=== PATIENT | female | born 1980 | race African-American/Black ===

== ENCOUNTER 2017-08-03 13:52 | Emergency (ER) | payer BC ==
[2017-08-03 14:33] LABS: Urine Blood 2+ (NEG); Urine Glucose NEGATIVE (NEG); Urine Protein NEGATIVE (NEG); Urine Specific Gravity 1.025 (1.005-1.030); Urine pH 5.5 (5.0-7.0)
[2017-08-03 14:47] LABS: Absolute Lymphocytes (CBC) 2.9 K/uL (0.7-4.9); Absolute Monocytes 0.7 K/uL (0.1-1.3); Bicarbonate 25 mEq/L (21-31); Eosinophils % 2.2 % (0-4.4); Glucose Level 95 mg/dL (65-120); Hematocrit 26.3 % (36.0-45.0); Lymphocytes % 26.4 % (15.3-44.8); MCH 18.3 pg (27.0-35.0); MCV 59.2 fL (80-100); Monocytes % 6.5 % (3.3-12.3); Potassium 3.1 mEq/L (3.6-5.0); RBC Red Blood Cell Count 4.44 M/uL (3.86-4.86); Sodium Level 140 mEq/L (135-145)
[2017-08-03 14:53] LABS: ALT/SGPT 13 IU/L (10-60); AST/SGOT 18 IU/L (10-42); Albumin 4.2 g/dL (3.2-5.5); Alkaline Phosphatase 77 IU/L (42-121); BUN Blood Urea Nitrogen 11 mg/dL (6-20); Bilirubin Direct 0.1 mg/dL (0-0.2); Bilirubin Total 0.5 mg/dL (0.3-1.2); Magnesium 1.8 mg/dL (1.8-2.5)
--- NOTE | 2017-08-03 14:54 | RAD REPORT ---
EXAM DESCRIPTION: Mina Single View08/03/2017 2:44 pm CLINICAL HISTORY: Chest pain COMPARISON: 2007 FINDINGS: The lungs appear clear of acute infiltrate. The heart is normal size IMPRESSION: No acute abnormalities displayed
[2017-08-03 14:56] LABS: CKMB Creatine Kinase MB 1.1 ng/ml (0.3-4.0)
--- NOTE | 2017-08-03 15:07 | ER ---
Nurse's Notes [facility] Name: Nickie Concepcion Age: 36 yrs Sex: Female : 1980 Arrival Date: 08/03/2017 Time: 13:54 Bed 17 Private MD: Diagnosis: Chest pain, unspecified;Iron deficiency anemia Presentation: 08/03 13:56 Presenting complaint: Patient states: For the past few days I have been having la1 intermittent chest pain about every 45 minutes. Transition of care: patient was not received from another setting of care. Onset of symptoms was August 03, 2017. Care prior to arrival: None. 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 - Social history:: Smoking status: Patient/guardian denies using tobacco. Screenin:16 Abuse screen: Denies threats or abuse. Nutritional screening: No deficits noted. em Tuberculosis screening: No symptoms or risk factors identified. Fall Risk None identified. Assessment: 14:16 General: Appears in no apparent distress. comfortable, Behavior is calm, cooperative, em Reports reports intermittent substernal chest pain that started on Friday, denies N/V, diaphoresis, or lightheadedness, currently denies pain. Pain: Complains of pain in mid-sternal area Pain does not radiate. Pain began 2-3 days ago. Neuro: Level of Consciousness is awake, alert, obeys commands, Oriented to person, place, time, situation, Denies dizziness. Cardiovascular: Reports shortness of breath, Denies chest pain, diaphoresis, lightheadedness, palpitations, Heart tones S1 S2 present Capillary refill < 3 seconds Patient's skin is warm and dry. Edema is absent. Rhythm is sinus rhythm. Respiratory: Airway is patent Respiratory effort is even, unlabored, Respiratory pattern is regular, symmetrical, Breath sounds are clear bilaterally. GI: Abdomen is round non-distended, Patient currently denies nausea, vomiting. : Urine is clear. EENT: No signs and/or symptoms were reported regarding the EENT system. Derm: Skin is intact, Skin is pink, warm \T\ dry. Musculoskeletal: Capillary refill < 3 seconds, Range of motion:. 15:14 Reassessment: Patient appears in no apparent distress at this time. Patient and/or iw family updated on plan of care and expected duration. Pain level reassessed. Patient is alert, oriented x 3, equal unlabored respirations, skin warm/dry/pink. I agree with above assessment by Jaguar Jordan LVN Patient states feeling better. Patient states symptoms have improved. Vital Signs: 13:56 BP 112 / 90; Pulse 86; Resp 19; Temp 98.4(TE); Pulse Ox 100% on R/A; Weight 81.65 kg; la1 Height 5 ft. 7 in. (170.18 cm); 14:39 BP 111 / 67; Pulse 83; Resp 18; Pulse Ox 100% on R/A; Pain 0/10; em 15:24 BP 109 / 65; Pulse 89; Resp 16; Pulse Ox 100% on R/A; Pain 0/10; iw 13:56 Body Mass Index 28.19 (81.65 kg, 170.18 cm) la1 ED Course: 13:54 Patient arrived in ED. as 13:56 Triage completed. la1 13:57 Arm band placed on left wrist. la1 13:58 Jaguar Jordan LVN is Primary Nurse. em 13:59 Kizzy Santiago FNP-C [facility]. kb 13:59 Gera Kirkpatrick MD is Attending Physician. kb 14:16 Patient has correct armband on for positive identification. Bed in low position. Call em light in reach. Side rails up X2. lunchroom monitor on. Pulse ox on. NIBP on. 14:16 No provider procedures requiring assistance completed. Patient maintains SpO2 em saturation greater than 95% on room air. 14:20 Initial lab(s) drawn, by me, sent to lab. Urine collected: clean catch specimen, clear. em Inserted saline lock: 20 gauge in right antecubital area, using aseptic technique. Blood collected. 14:31 EKG done, by ED staff, reviewed by Gera Kirkpatrick MD. em1 14:41 X-ray completed. Portable x-ray completed in exam room. Patient tolerated procedure la2 well. 14:44 XRAY Chest (1 view) In Process Unspecified. EDMS 15:23 IV discontinued, intact, bleeding controlled, No redness/swelling at site. Pressure em1 dressing applied. 15:25 IV discontinued, intact, bleeding controlled, No redness/swelling at site. Pressure iw dressing applied. Administered Medications: 15:12 Drug: Potassium Chloride 40 mEq Route: PO; iw 15:27 Follow up: Response: No adverse reaction em Outcome: 15:07 Discharge ordered by . delphine 15:24 Discharged to home ambulatory, with friend. iw 15:24 Condition: good 15:24 Discharge instructions given to patient, Instructed on discharge instructions, follow up and referral plans. Demonstrated understanding of instructions, follow-up care. 15:28 Patient left the ED. iw Signatures: Dispatcher [employer] EDKizzy Ruth, BOARD DESIGN ENGINEER-C BOARD DESIGN ENGINEER-CkJaguar Mustafa, JAVA CONSULTANT JAVA CONSULTANT Reina Blake Irene, RN Miguel Tomlinson1 Emiliano Ma RN RN la1 Becky Amato la2
--- NOTE | 2017-08-03 15:07 | EDPHYS ---
Physician Documentation [facility] Name: Nickie Concepcion Age: 36 yrs Sex: Female : 1980 Arrival Date: 08/03/2017 Time: 13:54 Bed 17 Private MD: ED Physician Gera Kirkpatrick HPI: 08/03 14:08 This 36 yrs old Black Female presents to ER via Ambulatory with complaints of Chest kb Pain. 14:09 The patient or guardian reports chest pain that is located primarily in the substernal kb area. The pain does not radiate. Associated signs and symptoms: The patient has no apparent associated signs or symptoms. The chest pain is described as aching. Duration: The patient or guardian reports multiple episodes, that are intermittent, with no pattern. Modifying factors: The symptoms are alleviated by nothing. the symptoms are aggravated by nothing. Severity of pain: At its worst the pain was mild moderate in the emergency department the pain has improved. The patient has not experienced similar symptoms in the past. The patient has not recently seen a physician. 14:09 Pt reports intermittent chest pain for 2 days. Denies any associated symptoms. . 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 - Social history:: Smoking status: Patient/guardian denies using tobacco. ROS: 14:06 Constitutional: Negative for fever, chills, and weight loss, ENT: Negative for injury, kb pain, and discharge, Neck: Negative for injury, pain, and swelling, Respiratory: Negative for shortness of breath, cough, wheezing, and pleuritic chest pain, Abdomen/GI: Negative for abdominal pain, nausea, vomiting, diarrhea, and constipation, Back: Negative for injury and pain, : Negative for injury, bleeding, discharge, and swelling, MS/Extremity: Negative for injury and deformity, Skin: Negative for injury, rash, and discoloration, Neuro: Negative for headache, weakness, numbness, tingling, and seizure. 14:06 Cardiovascular: Positive for chest pain, of the mid-sternal area, Negative for edema, orthopnea, palpitations, paroxysmal nocturnal dyspnea. Exam: 14:06 Constitutional: This is a well developed, well nourished patient who is awake, alert, kb and in no acute distress. Head/Face: Normocephalic, atraumatic. ENT: Nares patent. No nasal discharge, no septal abnormalities noted. Tympanic membranes are normal and external auditory canals are clear. Oropharynx with no redness, swelling, or masses, exudates, or evidence of obstruction, uvula midline. Mucous membranes moist. Neck: Trachea midline, no thyromegaly or masses palpated, and no cervical lymphadenopathy. Supple, full range of motion without nuchal rigidity, or vertebral point tenderness. No Meningismus. Chest/axilla: Normal chest wall appearance and motion. Nontender with no deformity. No lesions are appreciated. Cardiovascular: Regular rate and rhythm with a normal S1 and S2. No gallops, murmurs, or rubs. Normal PMI, no JVD. No pulse deficits. Respiratory: Lungs have equal breath sounds bilaterally, clear to auscultation and percussion. No rales, rhonchi or wheezes noted. No increased work of breathing, no retractions or nasal flaring. Abdomen/GI: Soft, non-tender, with normal bowel sounds. No distension or tympany. No guarding or rebound. No evidence of tenderness throughout. Skin: Warm, dry with normal turgor. Normal color with no rashes, no lesions, and no evidence of cellulitis. MS/ Extremity: Pulses equal, no cyanosis. Neurovascular intact. Full, normal range of motion. Neuro: Awake and alert, GCS 15, oriented to person, place, time, and situation. Cranial nerves II-XII grossly intact. Motor strength 5/5 in all extremities. Sensory grossly intact. Cerebellar exam normal. Normal gait. Vital Signs: 13:56 BP 112 / 90; Pulse 86; Resp 19; Temp 98.4(TE); Pulse Ox 100% on R/A; Weight 81.65 kg; la1 Height 5 ft. 7 in. (170.18 cm); 14:39 BP 111 / 67; Pulse 83; Resp 18; Pulse Ox 100% on R/A; Pain 0/10; em 15:24 BP 109 / 65; Pulse 89; Resp 16; Pulse Ox 100% on R/A; Pain 0/10; iw 13:56 Body Mass Index 28.19 (81.65 kg, 170.18 cm) la1 MDM: 13:59 Patient medically screened. kb 14:06 Data reviewed: vital signs, nurses notes. Data interpreted: Pulse oximetry: on room air kb is 100 %. Interpretation: normal. 15:02 NHAN Risk Score: TOTAL SCORE = 0. ED course: HEART score 0. kb 15:06 Counseling: I had a detailed discussion with the patient and/or guardian regarding: the kb historical points, exam findings, and any diagnostic results supporting the discharge/admit diagnosis, lab results, radiology results, the need for outpatient follow up, a family practitioner, to return to the emergency department if symptoms worsen or persist or if there are any questions or concerns that arise at home. 08/03 14:06 Order name: LFT's; Complete Time: 15:02 kb 08/03 14:06 Order name: Basic Metabolic Panel; Complete Time: 15:02 kb 08/03 14:06 Order name: BNP; Complete Time: 15:02 kb 08/03 14:06 Order name: CBC with Diff; Complete Time: 15:27 kb 08/03 14:06 Order name: Ckmb; Complete Time: 15:02 kb 08/03 14:06 Order name: Magnesium; Complete Time: 15:02 kb 08/03 14:06 Order name: Urine Test (obtain specimen); Complete Time: 14:20 kb 08/03 14:06 Order name: Troponin (emerg Dept Use Only); Complete Time: 14:55 kb 08/03 14:06 Order name: XRAY Chest (1 view); Complete Time: 14:55 kb 08/03 14:06 Order name: EKG; Complete Time: 14:06 kb 08/03 14:30 Order name: Urine Dipstick--Ancillary (enter results); Complete Time: 14:35 ms 08/03 14:30 Order name: Urine --Ancillary (enter results); Complete Time: 14:35 ms 08/03 14:53 Order name: CBC Smear Scan; Complete Time: 15:27 EDMS 08/03 14:06 Order name: Cardiac monitoring; Complete Time: 14:20 kb 08/03 14:06 Order name: EKG - Nurse/Tech; Complete Time: 14:20 kb 08/03 14:06 Order name: IV Saline Lock; Complete Time: 14:21 kb 08/03 14:06 Order name: Labs collected and sent; Complete Time: 14:21 kb 08/03 14:06 Order name: O2 Per Protocol; Complete Time: 14:21 kb 08/03 14:06 Order name: O2 Sat Monitoring; Complete Time: 14:21 kb 08/03 14:06 Order name: Urine Dipstick-Ancillary (obtain specimen); Complete Time: 14:20 kb Administered Medications: 15:12 Drug: Potassium Chloride 40 mEq Route: PO; 15:27 Follow up: Response: No adverse reaction em Disposition: 16:08 Co-signature as Attending Physician, Gera Kirkpatrick MD I agree with the assessment and kdr plan of care. Disposition: 08/03/17 15:07 Discharged to Home. Impression: Chest pain, unspecified, Iron deficiency anemia. - Condition is Stable. - Discharge Instructions: Nonspecific Chest Pain, [id number], Iron Deficiency Anemia, Adult, [id number]. - Medication Reconciliation Form, Thank You Letter, Antibiotic Education, Prescription Opioid Use, Work release form form. - Follow up: Emergency Department; When: As needed; Reason: Worsening of condition. Follow up: Private Physician; When: 2 - 3 days; Reason: Recheck today's complaints, Continuance of care, Re-evaluation by your physician. Signatures: Dispatcher [employer] Kizzy Ramos, PROGRAMMING COORDINATOR-C PROGRAMMING COORDINATOR-Gera Jones MD MD kdr Cammie Vickers, RN Emiliano Montoya RN RN laJaguar Baez LVN em
[2017-08-03 15:25] LABS: Anisocytosis 1+; Blood Morphology Comment NOTED (NOT SEEN); Hypochromasia 2+; Platelet Estimate ADEQ; Urine White Blood Cell Casts OK
[2017-08-03 15:26] LABS: Ovalocytes SLIGHT
[2017-08-03] MEDS ORDERED: POTASSIUM CL SA 10 MEQ TAB PO ONE (15:28)
--- NOTE | 2017-08-04 07:10 | EKG ---
Test Date: 2017-08-03 Test Time: 14:02:48 Desktop Engineer: PAULA MEASUREMENT RESULTS: Intervals: Rate: 77 WA: 132 QRSD: 90 QT: 368 QTc: 416 [place]: P: 28 WA: 132 QRS: 59 T: 41 INTERPRETIVE STATEMENTS: Normal sinus rhythm Normal ECG No previous ECG available for comparison Electronically Signed On 08-04-17 07:09:33 CDT by Shane Smart
== END 2017-08-03 15:28 | disposition home or self-care (01) ==
LOC: ER 13:52
DX: R07.9 Chest pain, unspecified (principal); D50.9 Iron deficiency anemia, unspecified
CPT/HCPCS: 36415; 71045; 80048; 80076; 81003; 81025; 82553; 83735; 83880; 84484; 85025; 93005; 99285

== ENCOUNTER 2018-10-15 20:08 | Emergency (ER) | payer BC ==
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
== END 2018-10-15 20:59 | disposition left against medical advice (07) ==
LOC: ER 20:08
DX: Z04.1 Encounter for examination and observation following transport accident (principal); Z53.21 Procedure and treatment not carried out due to patient leaving prior to being seen by health care provider
CPT/HCPCS: 99281

== ENCOUNTER 2021-09-09 08:09 | Emergency (ER) | payer OTHER ==
[2021-09-09] MEDS ORDERED: KETOROLAC 30 MG/ML INJ ONE (08:56)
--- NOTE | 2021-09-09 09:07 | RAD REPORT ---
EXAM DESCRIPTION: RAD - Lumbar Spine 3 Views - 09/09/2021 9:00 am CLINICAL HISTORY: Back pain FINDINGS: Mild posterior subluxation L5 on S1. No fracture or dislocation
[2021-09-09 09:08] LABS: Urine Blood Negative (Negative); Urine Glucose Negative (Negative); Urine Protein Trace (Negative); Urine Specific Gravity 1.025 (1.005-1.030)
[2021-09-09 09:18] LABS: Urine Specific Gravity/Preg 1.025 (1.005-1.030)
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
[2021-09-09 09:36] VITALS: BP 117/71; TEMP 97.3; O2SAT 98
== END 2021-09-09 09:31 | disposition home or self-care (01) ==
LOC: ER 08:09
DX: S33.39XA Dislocation of other parts of lumbar spine and pelvis, initial encounter (principal); V49.49XA Driver injured in collision with other motor vehicles in traffic accident, initial encounter
CPT/HCPCS: 72100; 81003; 81025; 96372; 99283

== ENCOUNTER 2022-01-31 12:49 | Emergency (ER) | payer BC, SELFPAY ==
[2022-01-31 13:47] LABS: Absolute Lymphocytes (CBC) 2.7 K/uL (0.7-4.9); Hematocrit 28.2 % (36.0-45.0); Lymphocytes % 30.6 % (15.3-44.8); MCV 66.2 fL (80-100); MPV 8.3 fL (7.6-11.3); RBC Red Blood Cell Count 4.26 M/uL (3.86-4.86)
[2022-01-31 14:02] LABS: Albumin 3.7 g/dL (3.4-5.0); Bilirubin Total 0.2 mg/dL (0.2-1.0); Potassium 3.2 mmol/L (3.5-5.1); Protein, Total 7.6 g/dL (6.4-8.2)
--- NOTE | 2022-01-31 15:01 | RAD REPORT ---
EXAM DESCRIPTION: US - Transvaginal Study Probe - 01/31/2022 2:27 pm CLINICAL HISTORY: VAGINAL BLEEDING COMPARISON: TRANSVAGINAL STUDY PROBE dated 05/21/2013 TECHNIQUE: Endovaginal sonography was performed. FINDINGS: Both ovaries are identified and show normal blood flow within the ovarian stroma. No domin ant solid or cystic ovarian or adnexal finding. No blood or fluid in the cul de sac. Prominent size uterus is present measuring 11.5 x 6.0 x 6.5 cm. Myometrium is somewhat coarsened but a discrete myometrial mass is not identified. Endometrium is thickened at 16-20 mm along the course o f the endometrial cavity. Endometrium - myometrium interface is preserved. Endometrial tissue is hete rogeneous. There is likely a mix of endometrial tissue and hemorrhage. Heterogeneous echogenic debris is present in the cervical canal. IMPRESSION: Hemorrhagic material and thickened endometrial tissue are present thickening the endomet rial stripe. No discrete endometrial mass or polyp identifiable. No gestational sac or sac remnant. No ovarian or adnexal abnormality.
--- NOTE | 2022-01-31 15:33 | ER ---
Nurse's Notes [facility] Name: Nickie Concepcion Age: 41 yrs Sex: Female : 1980 Arrival Date: 01/31/2022 Time: 12:54 Bed 5 Private MD: Diagnosis: Abnormal uterine and vaginal bleeding, unspecified Presentation: 01/31 13:04 Chief complaint: Patient states: hx of very irregular periods; started spotting jh Friday, Friday started bleeding significantly more with cramping. Pt was told to come here from her doctor because two days ago her hgb was 7 and theyre worried it's lower. Coronavirus screen: Vaccine status: Patient reports receiving the 2nd dose of the covid vaccine. Client denies travel out of the [place] in the last 14 days. Ebola Screen: Patient negative for fever greater than or equal to 101.5 degrees Fahrenheit, and additional compatible Ebola Virus Disease symptoms Patient denies exposure to infectious person. Patient denies travel to an Ebola-affected area in the 21 days before illness onset. Initial Sepsis Screen: Does the patient meet any 2 criteria? No. Patient's initial sepsis screen is negative. Does the patient have a suspected source of infection? No. Patient's initial sepsis screen is negative. Risk Assessment: Do you want to hurt yourself or someone else? Patient reports no desire to harm self or others. Onset of symptoms was January 29, 2022. 13:04 Method Of Arrival: Ambulatory [facility] 13:04 Acuity: VINICIUS 3 5 Triage Assessment: 13:06 General: Appears in no apparent distress. obese, well groomed, well developed, Behavior [facility] is calm, cooperative, appropriate for age. Pain: Denies pain. : Reports vaginal bleeding that is bright red. 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 Historical: - Allergies: 13:06 No Known Allergies; 5 - Home Meds: 13:06 Iron CR Oral [Active]; 5 - PMHx: 13:06 Anemia; 5 - Immunization history:: Adult Immunizations up to date. - Social history:: Smoking status: Patient denies any tobacco usage or history of. Screenin:30 Abuse screen: Denies threats or abuse. Denies injuries from another. Nutritional jh6 screening: No deficits noted. Tuberculosis screening: No symptoms or risk factors identified. Fall Risk None identified. Assessment: 13:30 Reassessment: No changes from previously documented assessment. Patient and/or family ll1 updated on plan of care and expected duration. Pain level reassessed. Patient is alert, oriented x 3, equal unlabored respirations, skin warm/dry/pink. Vital Signs: 13:04 BP 124 / 88; Pulse 86; Resp 18; Temp 98.6; Pulse Ox 97% ; Weight 86.64 kg; Height 5 ft. 5 7 in. (170.18 cm); Pain 0/10; 14:43 BP 126 / 74; Pulse 80; Resp 17; Pulse Ox 98% ; jh6 13:04 Body Mass Index 29.91 (86.64 kg, 170.18 cm) 5 ED Course: 12:54 Patient arrived in ED. 4 13:05 Thiago Burr PA is PHCP. [facility] 13:05 Vik Chan MD is Attending Physician. [facility] 13:06 Triage completed. [facility] 13:06 Arm band placed on right wrist. [facility] 13:25 Inserted saline lock: 22 gauge in right antecubital area, using aseptic technique. ll1 Blood collected. 13:30 Type And Screen Sent. ll1 13:30 CMP Sent. 1 13:30 CBC with Diff Sent. 1 13:38 Ekta Sorto, JULIETA is Primary Nurse. 6 14:10 Transvaginal Study Probe In Process Unspecified. EDMS 14:44 Patient has correct armband on for positive identification. Bed in low position. Call [facility] light in reach. Side rails up X 1. 14:44 No provider procedures requiring assistance completed. 6 15:30 Melany Hess MD is Referral Physician. [facility] Administered Medications: No medications were administered Medication: 14:44 VIS not applicable for this client. [facility] Outcome: 15:32 Discharge ordered by . [facility] 16:13 Patient left the ED. [facility] Signatures: Dispatcher [employer] EDMS Thiago Burr PA PA jmm Garcia, Rubi 4 Mely Chauhan RN RN ll1 Zoie Zamudio RN RN 5 Ekta Sorto RN RN 6
--- NOTE | 2022-01-31 15:33 | EDPHYS ---
Physician Documentation [facility] Name: Nickie Concepcion Age: 41 yrs Sex: Female : 1980 Arrival Date: 01/31/2022 Time: 12:54 Bed 5 Private MD: ED Physician Vik Chan HPI: 01/31 13:08 This 41 yrs old Black Female presents to ER via Ambulatory with complaints of Vaginal jmm Bleeding. 13:08 The patient presents with vaginal bleeding that is. Onset: The symptoms/episode jmm began/occurred gradually, 1 week(s) ago. Modifying factors: The symptoms are alleviated by nothing, the symptoms are aggravated by nothing. Associated signs and symptoms: Pertinent negatives: fever, vaginal discharge. 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 - Social history:: Smoking status: Patient denies any tobacco usage or history of. ROS: 18:07 Constitutional: Negative for fever, chills, and weight loss, Cardiovascular: Negative jmm for chest pain, palpitations, and edema, Respiratory: Negative for shortness of breath, cough, wheezing, and pleuritic chest pain. 18:07 : Positive for vaginal bleeding. 18:07 All other systems are negative. Exam: 18:07 Constitutional: This is a well developed, well nourished patient who is awake, alert, jmm and in no acute distress. Head/Face: atraumatic. Eyes: EOMI, no conjunctival erythema appreciated ENT: Moist Mucus Membranes Neck: Trachea midline, Supple Chest/axilla: Normal chest wall appearance and motion. Cardiovascular: Regular rate and rhythm. No edema appreciated Respiratory: Normal respirations, no respiratory distress appreciated Abdomen/GI: Non distended Back: Normal ROM Skin: General appearance color normal MS/ Extremity: Moves all extremities, no obvious deformities appreciated, no edema noted to the lower extremities Neuro: Awake and alert Psych: Behavior is normal, Mood is normal, Patient is cooperative and pleasant Vital Signs: 13:04 BP 124 / 88; Pulse 86; Resp 18; Temp 98.6; Pulse Ox 97% ; Weight 86.64 kg; Height 5 ft. 5 7 in. (170.18 cm); Pain 0/10; 14:43 BP 126 / 74; Pulse 80; Resp 17; Pulse Ox 98% ; jh6 13:04 Body Mass Index 29.91 (86.64 kg, 170.18 cm) [facility] MDM: 13:08 Patient medically screened. [facility] 15:30 Data reviewed: vital signs, nurses notes. Counseling: I had a detailed discussion with [facility] the patient and/or guardian regarding: the historical points, exam findings, and any diagnostic results supporting the discharge/admit diagnosis, lab results, radiology results, the need for outpatient follow up, to return to the emergency department if symptoms worsen or persist or if there are any questions or concerns that arise at home. 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 I agree with assessment [facility] and care plan and confirm the diagnosis (es) above. Attestation: The patient's history, exam findings, diagnostics, and a summary of any interventions or procedures was reviewed in detail with Thiago MELENDREZ. Disposition Summary: 01/31/22 15:32 Discharge Ordered Location: Home [facility] Condition: Stable [facility] Diagnosis - Abnormal uterine and vaginal bleeding, unspecified [facility] Followup: [facility] - With: Melany Hess MD - When: 2 - 3 days - Reason: Recheck today's complaints, Continuance of care, Re-evaluation by your physician Discharge Instructions: - Discharge Summary Sheet [facility] - Abnormal Uterine Bleeding [facility] Forms: - Medication Reconciliation Form [facility] - Thank You Letter [facility] - Antibiotic Education [facility] - Prescription Opioid Use [facility] - Work release form [facility] Prescriptions: - norgestimate-ethinyl estradiol 0.25-35 mg-mcg Oral tablet - take 1 tablet by ORAL route once daily As needed Please take 1 tab po BID for 7 jmm days, then take 1 tab by mouth daily until finishing the pack; 28 tablet; Refills: 0, Product Selection Permitted - Ferrous Sulfate 325 mg (65 mg Iron) Oral Tablet - take 1 tablet by ORAL route every 8 hours; 90 tablet; Refills: 0, Product jmm Selection Permitted Signatures: Dispatcher [employer] EDThiago Quiroz PA PA jmm Rees, Jessica, RN RN jh5 Vik Chan MD MD [id number] Corrections: (The following items were deleted from the chart) 13:53 13:12 Pelvis Complete+[id number].BRZ ordered. EDMS EDMS
[2022-01-31 15:44] LABS: Anisocytosis 1+; Blood Morphology Comment NOTED (NOT SEEN); Hypochromasia 1+; Platelet Estimate ADEQ; White Blood Cell Scan OK (OK)
[2022-02-01 20:06] VITALS: TEMP 98.6
[2022-02-01 20:07] VITALS: BP 126/74; O2SAT 98
== END 2022-01-31 16:13 | disposition home or self-care (01) ==
LOC: ER 12:49
DX: N93.9 Abnormal uterine and vaginal bleeding, unspecified (principal)
CPT/HCPCS: 36415; 76830; 80053; 85025; 99283

== ENCOUNTER 2023-03-24 10:20 | Emergency (ER) | payer SELFPAY ==
--- OUTSIDE RECORDS SUMMARY | 2023-03-24 10:23 | XMS REPORT | Continuity of Care Document ---
:1980 Author Organization [facility] t Address [address] [place] [id number] Care Team Providers Name Role Phone [email or web address] Attending Clinician Unavailable [email or web address] Admitting Clinician Unavailable Problems This patient has no known problems. Allergies, Adverse Reactions, Alerts This patient has no known allergies or adverse reactions. Medications This patient has no known medications. Procedures This patient has no known procedures. Encounters Start End Encounter Admission Attending Care Care Encounter Source Date/Time Date/Time Type Type Clinicians Facility Department ID 2023-03-05 2023-03-05 Outpatient [email or web address] PRIV PRIV [id number] [facility] 00:00:00 00:00:00 [email or web address] [id number] Medic al Results This patient has no known results.
[2023-03-24 11:30] LABS: Absolute Lymphocytes (CBC) 2.7 K/uL (0.7-4.9); Hematocrit 28.1 % (36.0-45.0); Lymphocytes % 37.9 % (15.3-44.8); MCV 62.7 fL (80-100); Platelets 424 thou/uL (152-406); RBC Red Blood Cell Count 4.48 M/uL (3.86-4.86)
[2023-03-24 11:31] LABS: Protime INR 1.13
[2023-03-24 11:44] LABS: Potassium 3.5 mEq/L (3.5-5.1); Troponin High Sensitivity 3.2 pg/mL (<58.9)
--- NOTE | 2023-03-24 12:06 | RAD REPORT ---
EXAM DESCRIPTION: Mina Single View03/24/2023 11:34 am CLINICAL HISTORY: Chest pain COMPARISON: none FINDINGS: The lungs appear clear of acute infiltrate. The heart is normal size IMPRESSION: No acute abnormalities displayed
[2023-03-24 12:35] LABS: Blood Morphology Comment NOTED (NOT SEEN); Platelet Estimate ADEQ; White Blood Cell Scan OK (OK)
[2023-03-24 12:36] LABS: Anisocytosis 2+; Hypochromasia 2+
--- NOTE | 2023-03-24 12:49 | RAD REPORT ---
EXAM DESCRIPTION: CT - Chest For Pe Angio - 03/24/2023 12:18 pm CLINICAL HISTORY: Chest pain COMPARISON: None. TECHNIQUE: Dynamically enhanced axial 3 mm thick images of the chest were obtained during administra tion of 100 mL Isovue 370 IV contrast. Coronal and oblique reconstruction images were generated and r eviewed. Exam utilizes a protocol for optimal evaluation of pulmonary arterial tree. Maximum intensity projections 3D imaging was utilized All CT scans are performed using dose optimization technique as appropriate and may include automated exposure control or mA/KV adjustment according to patient size. FINDINGS: A pulmonary embolus is not seen. A thoracic aortic aneurysm is not noted. A pleural effusion is not seen. A pericardial effusion is not seen. A lung consolidation is not present. IMPRESSION: Negative for a pulmonary embolism.
--- NOTE | 2023-03-24 12:55 | EDPHYS ---
Physician Documentation [facility] Name: Nickie Concepcion Age: 42 yrs Sex: Female : 1980 Arrival Date: 03/24/2023 Time: 10:20 Bed 14 Private MD: ED Physician Pedrito Carrington HPI: 03/24 10:26 This 42 yrs old Black Female presents to ER via Ambulatory with complaints of Chest jh7 Pain. 10:26 Onset: The symptoms/episode began/occurred this morning. Associated signs and symptoms: jh7 Pertinent positives: chest pain, shortness of breath, Pertinent negatives: abdominal pain, cough, fever. Patient sent by Dr. Bro for a chest x-ray. The patient reports that her O2 sat of 91% while at the clinic and has a history of anemia. She states that the chest pain and shortness of breath have been intermittent for a while. Denies fever, cough, or any other symptoms at this time.. 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 - Social history:: Smoking status: Patient denies any tobacco usage or history of. ROS: 10:26 Constitutional: Negative for fever, chills, and weight loss, Eyes: Negative for injury, jh7 pain, redness, and discharge, ENT: Negative for injury, pain, and discharge, Neck: Negative for injury, pain, and swelling, Abdomen/GI: Negative for abdominal pain, nausea, vomiting, diarrhea, and constipation, Back: Negative for injury and pain, MS/Extremity: Negative for injury and deformity, Skin: Negative for injury, rash, and discoloration, Neuro: Negative for headache, weakness, numbness, tingling, and seizure, 10:26 Cardiovascular: Positive for chest pain, Negative for edema, orthopnea, palpitations, 10:26 Respiratory: Positive for shortness of breath, Negative for cough, wheezing, 10:26 All other systems are negative, Exam: 10:26 Constitutional: This is a well developed, well nourished patient who is awake, alert, jh7 and in no acute distress. Head/Face: Normocephalic, atraumatic. Neck: Trachea midline, no thyromegaly or masses palpated, and no cervical lymphadenopathy. Supple, full range of motion without nuchal rigidity, or vertebral point tenderness. No Meningismus. Cardiovascular: Regular rate and rhythm with a normal S1 and S2. No gallops, murmurs, or rubs. Normal PMI, no JVD. No pulse deficits. Respiratory: Lungs have equal breath sounds bilaterally, clear to auscultation and percussion. No rales, rhonchi or wheezes noted. No increased work of breathing, no retractions or nasal flaring. Abdomen/GI: Soft, non-tender, with normal bowel sounds. No distension or tympany. No guarding or rebound. No evidence of tenderness throughout. Skin: Warm, dry with normal turgor. Normal color with no rashes, no lesions, and no evidence of cellulitis. MS/ Extremity: Pulses equal, no cyanosis. Neurovascular intact. Full, normal range of motion. Neuro: Awake and alert, GCS 15, oriented to person, place, time, and situation. Motor strength 5/5 in all extremities. Sensory grossly intact. Normal gait. Vital Signs: 10:26 BP 122 / 85; Pulse 76; Resp 18; Temp 98.1; Pulse Ox 100% ; Weight 83.91 kg; Height 5 mb9 ft. 7 in. ; Pain 0/10; 11:00 BP 106 / 65; Pulse 82; Resp 16; Pulse Ox 100% on R/A; db 12:30 BP 107 / 70; Pulse 81; Resp 16; Pulse Ox 97% on R/A; db 10:26 Body Mass Index 28.97 (83.91 kg, 170.18 cm) mb9 10:26 Pain Scale: Adult mb9 MDM: 10:26 Patient medically screened. [facility] 12:52 Differential diagnosis: pneumonia Pulmonary embolism, bronchitis, anemia, viral [facility] illness, cardiac arrhythmia, acute MT. Data reviewed: vital signs, nurses notes, lab test result(s), EKG, radiologic studies, CT scan, plain films. Independent interpretation of the following test(s) in the Emergency Department EKG: See my EKG interpretation above X-Ray: My interpretation is No pneumonia noted. Care significantly affected by the following chronic conditions: Anemia. Counseling: I had a detailed discussion with the patient and/or guardian regarding the historical points, exam findings, and any diagnostic results supporting the discharge/admit diagnosis, to return to the emergency department if symptoms worsen or persist or if there are any questions or concerns that arise at home. ED course: Reviewed all labs and imaging results with the patient. O2 sat remained at 100% throughout the ER visit. The patient stated that the chest pain and shortness of breath has been intermittent for the past few months. Advised her to follow-up with her PCP for further care. The patient stated that her PCP increased her iron dosage today which should hopefully help with symptoms.. 03/24 10:35 Order name: Basic Metabolic Panel; Complete Time: 11:48 [facility] 03/24 10:35 Order name: CBC with Diff; Complete Time: 12:37 [facility] 03/24 10:35 Order name: D-Dimer; Complete Time: 11:40 [facility] 03/24 10:35 Order name: NT PRO-BNP; Complete Time: 11:48 [facility] 03/24 10:35 Order name: PT-INR; Complete Time: 11:40 [facility] 03/24 10:35 Order name: Troponin HS; Complete Time: 11:48 [facility] 03/24 10:51 Order name: Type And Screen; Complete Time: 12:37 [facility] 03/24 11:50 Order name: CBC Smear Scan; Complete Time: 12:37 [facility] 03/24 10:35 Order name: XRAY Chest (1 view); Complete Time: 12:37 [facility] 03/24 11:41 Order name: CT Chest For PE Angio; Complete Time: 12:50 [facility] 03/24 10:35 Order name: EKG; Complete Time: 10:36 [facility] 03/24 10:35 Order name: Cardiac monitoring; Complete Time: 11:33 [facility] 03/24 10:35 Order name: EKG - Nurse/Tech; Complete Time: 11:33 [facility] 03/24 10:35 Order name: IV Saline Lock; Complete Time: :33 [facility] 03/24 10:35 Order name: Labs collected and sent; Complete Time: 11:33 [facility] 03/24 10:35 Order name: O2 Per Protocol; Complete Time: : [facility] 03/24 10:35 Order name: O2 Sat Monitoring; Complete Time: 11:33 jh7 EC:57 Rate is 74 beats/min. Rhythm is regular. QRS [place] is Normal. NV interval is normal at [facility] 138 msec. QRS interval is normal at 98 msec. QT interval is normal at 380 msec. No Q waves. T waves are Normal. No ST changes noted. Clinical impression: Normal ECG. Administered Medications: No medications were administered Disposition: 16:45 Co-signature as Attending Physician, Pedrito Carrington MD I reviewed the patient's care rt provided by the Advanced Practice Provider and agree with the diagnosis and treatment plan. Disposition Summary: 03/24/23 12:54 Discharge Ordered Notes: Location: Home [facility] Problem: chronic [facility] Symptoms: are unchanged [facility] Condition: Stable [facility] Diagnosis - Iron deficiency anemia, unspecified [facility] - Shortness of breath [facility] - Chest pain on breathing [facility] Followup: [facility] - With: Private Physician - When: 2 - 3 days - Reason: Recheck today's complaints Discharge Instructions: - Discharge Summary Sheet [facility] - Iron Deficiency Anemia, Adult [facility] - Nonspecific Chest Pain, Adult [facility] - Shortness of Breath, Adult [facility] Forms: - Medication Reconciliation Form [facility] - Thank You Letter [facility] - Patient Portal Instructions [facility] - Leadership Thank You Letter [facility] - Work release form db Signatures: Dispatcher [employer] Ekta Pham FNP FNP [facility] Annette Lyn, RN RN mb9 Pedrito Carrington MD MD rt
--- NOTE | 2023-03-24 12:55 | ER ---
Nurse's Notes [facility] Name: Nickie Concepcion Age: 42 yrs Sex: Female : 1980 Arrival Date: 03/24/2023 Time: 10:20 Bed 14 Private MD: Diagnosis: Iron deficiency anemia, unspecified;Shortness of breath;Chest pain on breathing Presentation: 03/24 10:26 Chief complaint: Patient states: "Dr. Bro sent me here to do a chest XRAY because my mb9 oxygen levels were low in the 90s. I feel a little out of breath and chest pain every now and then.". Coronavirus screen: At this time, the client does not indicate any symptoms associated with coronavirus-19. Ebola Screen: No symptoms or risks identified at this time. Initial Sepsis Screen: Does the patient meet any 2 criteria? No. Patient's initial sepsis screen is negative. Does the patient have a suspected source of infection? No. Patient's initial sepsis screen is negative. Risk Assessment: Do you want to hurt yourself or someone else? Patient reports no desire to harm self or others. Onset of symptoms was March 24, 2023. 10:26 Method Of Arrival: Ambulatory mb9 10:26 Acuity: VINICIUS 3 mb9 Triage Assessment: 10:28 General: Appears in no apparent distress. Behavior is calm, cooperative. Pain: Denies mb9 pain. EENT: No signs and/or symptoms were reported regarding the EENT system. Neuro: Barnes Agitation-Sedation Scale (RASS): 0 - Alert and Calm Level of Consciousness is awake, alert, obeys commands, Oriented to person, place, time, situation, Appropriate for age. Cardiovascular: Reports chest pain. Respiratory: Reports shortness of breath Airway is patent Respiratory effort is even, unlabored, Respiratory pattern is regular, symmetrical. GI: No signs and/or symptoms were reported involving the gastrointestinal system. : No signs and/or symptoms were reported regarding the genitourinary system. Derm: Skin is pink, warm \\T\\ dry. Musculoskeletal: Range of motion: intact in all extremities. 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 - Social history:: Smoking status: Patient denies any tobacco usage or history of. Screenin:14 [facility] ED Fall Risk Assessment (Adult) History of falling in the last 3 months, db including since admission No falls in past 3 months (0 pts) Confusion or Disorientation No (0 pts) Intoxicated or Sedated Yes (3 pts) Impaired Gait No (0 pts) Mobility Assist Device Used No (0 pt) Altered Elimination No (0 pt) Score/Fall Risk Level 0 - 2 = Low Risk Oriented to surroundings, Maintained a safe environment. Abuse screen: Denies threats or abuse. Denies injuries from another. Nutritional screening: No deficits noted. Tuberculosis screening: No symptoms or risk factors identified. Assessment: 11:00 Reassessment: Patient appears in no apparent distress at this time. Patient and/or db family updated on plan of care and expected duration. Pain level reassessed. Patient is alert, oriented x 3, equal unlabored respirations, skin warm/dry/pink. General: Appears in no apparent distress. comfortable, Behavior is calm, cooperative. Pain: Complains of pain in chest Pain does not radiate. Pain began gradually. Neuro: Level of Consciousness is awake, alert, obeys commands, Oriented to person, place, time, situation. 12:00 Reassessment: Patient appears in no apparent distress at this time. Patient and/or db family updated on plan of care and expected duration. Pain level reassessed. Patient is alert, oriented x 3, equal unlabored respirations, skin warm/dry/pink. 13:18 Reassessment: Patient appears in no apparent distress at this time. Patient and/or iw family updated on plan of care and expected duration. Pain level reassessed. Patient is alert, oriented x 3, equal unlabored respirations, skin warm/dry/pink. Patient denies pain at this time. Patient states symptoms have improved. Vital Signs: 10:26 BP 122 / 85; Pulse 76; Resp 18; Temp 98.1; Pulse Ox 100% ; Weight 83.91 kg; Height 5 mb9 ft. 7 in. ; Pain 0/10; 11:00 BP 106 / 65; Pulse 82; Resp 16; Pulse Ox 100% on R/A; db 12:30 BP 107 / 70; Pulse 81; Resp 16; Pulse Ox 97% on R/A; db 10:26 Body Mass Index 28.97 (83.91 kg, 170.18 cm) 9 10:26 Pain Scale: Adult 9 ED Course: 10:24 Patient arrived in ED. im 10:26 Ekta Gautam FNP is [facility] 7 10:26 Pedrito Carrington MD is Attending Physician. 7 10:28 Triage completed. mb9 10:28 Arm band placed on. mb9 10:39 Lida Ernst, RN is Primary Nurse. db 10:57 EKG done. db 11:05 Inserted saline lock: 20 gauge in right antecubital area, using aseptic technique. db Blood collected. 11:14 Patient has correct armband on for positive identification. Bed in low position. Call db light in reach. Side rails up X 1. Client placed on continuous cardiac and pulse oximetry monitoring. NIBP monitoring applied. Warm blanket given. 11:36 XRAY Chest (1 view) In Process Unspecified. EDMS 12:16 CT Chest For PE Angio In Process Unspecified. EDMS 13:18 Provided Education on: . iw 13:18 No provider procedures requiring assistance completed. IV discontinued, intact, iw bleeding controlled, No redness/swelling at site. Pressure dressing applied. Patient maintains SpO2 saturation greater than 95% on room air. Administered Medications: No medications were administered Medication: 11:16 VIS not applicable for this client. db Outcome: 12:54 Discharge ordered by . [facility] 13:18 Discharged to home ambulatory, iw 13:18 Condition: good 13:18 Discharge instructions given to patient, Instructed on discharge instructions, follow up and referral plans. Demonstrated understanding of instructions, follow-up care, 13:19 Patient left the ED. iw Signatures: Dispatcher [employer] EDMS Cammie Vickers RN JULIETA Ekta Gautam FNP AGENCY MANAGER [facility] Lida Ernst, RN RN Annette Newman RN RN 9 Callie Church
[2023-03-24 13:36] VITALS: TEMP 98.1; O2SAT 100
[2023-03-24 13:41] VITALS: BP 106/65
--- NOTE | 2023-03-26 16:57 | EKG ---
Test Date: 2023-03-24 Test Time: 10:57:47 Rn Bariatric: JOHANNA MEASUREMENT RESULTS: Intervals: Rate: 74 WV: 138 QRSD: 98 QT: 380 QTc: 421 [place]: P: 32 WV: 138 QRS: 37 T: 28 INTERPRETIVE STATEMENTS: Normal sinus rhythm Normal ECG Compared to ECG 08/03/2017 14:02:48 No significant changes Electronically Signed On 03-26-23 16:52:12 MULTIMEDIA ENGINEER by Tani Jackson
== END 2023-03-24 13:19 | disposition home or self-care (01) ==
LOC: ER 10:20
DX: D50.9 Iron deficiency anemia, unspecified (principal); R07.1 Chest pain on breathing; R06.02 Shortness of breath
CPT/HCPCS: 36415; 71045; 71275; 80048; 83880; 84484; 85025; 85379; 85610; 86850; 86900; 86901; 93005; 99284; Q9967

== ENCOUNTER 2023-08-18 09:07 | Emergency (ER) | payer BC ==
--- OUTSIDE RECORDS SUMMARY | 2023-08-18 09:09 | XMS REPORT | Continuity of Care Document ---
Author Name Unknown Address [address] [place] [address] thconnect Address [address] [place] [address] Care Team Providers Care Launderette Attendant Name Role Phone [email or web address] Attending Clinician Unavaila ble [email or web address] Admitting Clinician Unavaila ble Encounters Start Date/Time End Date/Time Encounter Type Admission Type Attending Clinicians Care Facility Care Department Encounter ID Source 2023-03-05 00:00:00 2023-03-05 00:00:00 Outpatient [email or web address] PRIV PRIV [id number] [facility]
--- NOTE | 2023-08-18 09:25 | EDPHYS ---
Physician Documentation [facility] Name: Nickie Concepcion Age: 42 yrs Sex: Female : 1980 Arrival Date: 08/18/2023 Time: 09:07 Bed 13 Private MD: Wiliam Louie ED Physician Ronen Webber HPI: 08/17 09:22 This 42 yrs old Black Female presents to ER via Ambulatory with complaints of Fever, ec2 Redness of Eye, Body aches. 09:22 Patient arrives today for evaluation of bodyaches with associated fevers, ec2 conjunctivitis. Patient reports 1 day of symptoms. Patient reports no history of p.o. intake, has been having some subjective fevers been taking ibuprofen, no cough and cold symptoms, no difficulty breathing, no abdominal pain, no vomiting or diarrhea. Patient with no known sick contacts. Denies any significant medical problems.. Historical: - Allergies: 09:21 No Known Allergies; nj1 - PMHx: 09:21 Anemia; nj1 - Immunization history:: Client reports receiving the 2nd dose of the Covid vaccine. - Infectious Disease History:: Denies. - Social history:: Smoking status: Patient denies any tobacco usage or history of. ROS: 09:22 Constitutional: as per hpi ec2 Exam: 09:22 Constitutional: GEN: NAD Head: atraumatic Eyes: EOMI, bilateral conjunctival ec2 injection, slight amount of discharge appreciated. Mouth: No posterior pharyngeal erythema or exudates appreciated, no cervical lymphadenopathy noted. Ears: External ears are normal. CV: Tachycardia LUNGS: no respiratory distress, no wheezes, rales, or rhonchi ABD: non-distended SKIN: no evidence of rashes MSK: no evidence of trauma NEURO: moves all extremities equally Vital Signs: 09:15 BP 115 / 76; Pulse 109; Resp 16; Temp 100(O); Pulse Ox 97% on R/A; Weight 81.65 kg; nj1 Height 5 ft. 7 in. ; Pain 5/10; 09:15 Body Mass Index 28.19 (81.65 kg, 170.18 cm) nj1 09:15 Pain Scale: Adult nj1 MDM: 09:15 Patient medically screened. ec2 09:22 Data reviewed: vital signs. ED course: Patient arrives today for evaluation of URI ec2 signs and symptoms. Examination remarkable for well-appearing nontoxic dividual slightly tachycardic and borderline febrile. Given the constellation of fevers, conjunctival injection along with bodyaches, suspect a viral infection causing the patient's symptoms. Will defer any lab work such as COVID or flu swab for the Pain management changing. Instructed the patient on Tylenol ibuprofen use as well as will start the patient on ophthalmic ointment. Patient discharged home. Return precautions given.. Administered Medications: No medications were administered Disposition Summary: 08/18/23 09:24 Discharge Ordered Notes: Location: Home ec2 Condition: Stable ec2 Diagnosis - Other viral conjunctivitis ec2 - Viral infection, unspecified ec2 Followup: ec2 - With: Private Physician - When: - Reason: Re-evaluation by your physician Discharge Instructions: - Discharge Summary Sheet ec2 Forms: - Work release form ec2 - Medication Reconciliation Form ec2 - Thank You Letter ec2 - Antibiotic Education ec2 - Prescription Opioid Use ec2 - Patient Portal Instructions ec2 - Leadership Thank You Letter ec2 Prescriptions: - Erythromycin 5 mg/gram (0.5 %) Ophthalmic ointment - apply 1 ribbon OPHTHALMIC route every 8 hours; 1 unit; Refills: 0, Product ec2 Selection Permitted Signatures: Sheree Bennett RN RN nj1 Ronen Webber MD MD ec2
--- NOTE | 2023-08-18 09:25 | ER ---
Nurse's Notes [facility] Name: Nickie Concepcion Age: 42 yrs Sex: Female : 1980 Arrival Date: 08/18/2023 Time: 09:07 Bed 13 Private MD: Wiliam Louie Diagnosis: Other viral conjunctivitis;Viral infection, unspecified Presentation: 08/17 09:15 Chief complaint: Patient states: Body aches, fever since yesterday, gotten worse this nj1 morning. Woke up with reddened eyes, irritated. Took ibuprofen and muscle relaxant this am. 09:15 Coronavirus screen: Vaccine status: Patient reports receiving the 2nd dose of the covid nj1 vaccine. Ebola Screen: Patient denies travel to an Ebola-affected area in the 21 days before illness onset. Initial Sepsis Screen: Does the patient meet any 2 criteria? HR > 90 bpm. No. Patient's initial sepsis screen is negative. Does the patient have a suspected source of infection? No. Patient's initial sepsis screen is negative. Risk Assessment: Do you want to hurt yourself or someone else? Patient reports no desire to harm self or others. Onset of symptoms was August 17, 2023. 09:15 Method Of Arrival: Ambulatory [facility] 09:15 Acuity: VINICIUS 4 [facility] Historical: - Allergies: 09:21 No Known Allergies; nj1 - PMHx: 09:21 Anemia; nj1 - Immunization history:: Client reports receiving the 2nd dose of the Covid vaccine. - Infectious Disease History:: Denies. - Social history:: Smoking status: Patient denies any tobacco usage or history of. Screenin:28 [facility] ED Fall Risk Assessment (Adult) History of falling in the last 3 months, [facility] including since admission No falls in past 3 months (0 pts) Confusion or Disorientation No (0 pts) Intoxicated or Sedated No (0 pts) Impaired Gait No (0 pts) Mobility Assist Device Used No (0 pt) Altered Elimination No (0 pt) Score/Fall Risk Level 0 - 2 = Low Risk Oriented to surroundings, Maintained a safe environment, Hourly rounding (assess needs \T\ fall precautionary measures) done. Abuse screen: Denies threats or abuse. Denies injuries from another. Nutritional screening: No deficits noted. Tuberculosis screening: No symptoms or risk factors identified. Assessment: 09:23 General: Appears in no apparent distress. comfortable, Behavior is calm, cooperative, nj1 appropriate for age. Pain: Complains of pain in Generalized Pain currently is 5 out of 10 on a pain scale. Neuro: Level of Consciousness is awake, alert, obeys commands, Oriented to person, place, time, situation. Cardiovascular: Patient's skin is warm and dry. Respiratory: Airway is patent Respiratory effort is even, unlabored. EENT: Sclera/Cornea are reddened in outer aspect of conjuctiva of right eye, inner aspect of conjuctiva of right eye, outer aspect of conjuctiva of left eye and inner aspect of conjunctiva of left eye. Vital Signs: 09:15 BP 115 / 76; Pulse 109; Resp 16; Temp 100(O); Pulse Ox 97% on R/A; Weight 81.65 kg; nj1 Height 5 ft. 7 in. ; Pain 5/10; 09:15 Body Mass Index 28.19 (81.65 kg, 170.18 cm) nj1 09:15 Pain Scale: Adult nj ED Course: 09:10 Patient arrived in ED. mr 09:11 Wiliam Louie DO is Private Physician. mr 09:13 Sheree Bennett, JULIETA is Primary Nurse. nj1 09:13 Ronen Webber MD is Attending Physician. ec2 09:15 Arm band placed on Patient placed in an exam room, on a stretcher. ll1 09:21 Triage completed. nj1 09:28 Patient has correct armband on for positive identification. Bed in low position. Call nj1 light in reach. Provided Education on: call light, fall precautions. 09:36 No provider procedures requiring assistance completed. Patient did not have IV access nj during this emergency room visit. Administered Medications: No medications were administered Medication: 09:37 VIS not applicable for this client. nj1 Outcome: 09:24 Discharge ordered by . ec2 09:37 Discharged to home ambulatory, nj1 09:37 Condition: stable 09:37 Discharge instructions given to patient, Instructed on discharge instructions, follow up and referral plans. medication usage, Demonstrated understanding of instructions, follow-up care, medications, Prescriptions given X 1, 09:39 Patient left the ED. nj1 Signatures: Annette Ariza, Jeff Reg mr Mely Chauhan RN RN ll1 Sehree Bennett RN RN nj1 Ronen Webber MD MD ec2 Corrections: (The following items were deleted from the chart) : 09:15 Chief complaint: Patient states: Body aches, fever since yesterday, gotten worse nj1 this morning. Woke up with reddened eyes, irritated. nj1
[2023-08-18 10:30] VITALS: BP 115/76; TEMP 100; O2SAT 97
== END 2023-08-18 09:39 | disposition home or self-care (01) ==
LOC: ER 09:07
DX: B34.9 Viral infection, unspecified (principal); B30.8 Other viral conjunctivitis
CPT/HCPCS: 99283

== ENCOUNTER 2023-08-21 12:58 | Emergency (ER) | payer BC ==
--- OUTSIDE RECORDS SUMMARY | 2023-08-21 13:01 | XMS REPORT | Continuity of Care Document ---
Author Name Unknown Address [address] [place] [address] thconnect Address [address] [place] [address] Care Team Providers Care [employer] Black Belt Name Role Phone [email or web address] Attending Clinician Unavaila ble [email or web address] Admitting Clinician Unavaila ble Encounters Start Date/Time End Date/Time Encounter Type Admission Type Attending Clinicians Care Facility Care Department Encounter ID Source 2023-03-05 00:00:00 2023-03-05 00:00:00 Outpatient [email or web address] diyala_S PRIV PRIV [id number] [facility]
--- NOTE | 2023-08-21 13:27 | EDPHYS ---
Physician Documentation [facility] Name: Nickie Concepcion Age: 42 yrs Sex: Female : 1980 Arrival Date: 08/21/2023 Time: 12:58 Bed DX3 Private MD: ED Physician Alva Hensley HPI: 08/20 13:45 This 42 yrs old Black Female presents to ER via Ambulatory with complaints of Eye sb4 Swelling, Eye Problem - red eyes and burning. 13:45 The patient is experiencing foreign body sensation, pain, redness, tearing, to both sb4 eyes, caused by an unknown mechanism. Onset: The symptoms/episode began/occurred last night. Aggravated by nothing. Alleviated by covering eye, heat application. Associated signs and symptoms: Pertinent negatives: chills, dizziness, ear ache, fever, headache, runny nose. Patient wears glasses. The patient has not experienced similar symptoms in the past. The patient has not recently seen a physician. Historical: - Allergies: 13:19 No Known Allergies; as6 - PMHx: 13:19 Anemia; as6 - PSHx: 13:19 None; as6 - Immunization history:: Adult Immunizations up to date. - Infectious Disease History:: Denies. - Social history:: Smoking status: Patient denies any tobacco usage or history of. ROS: 13:45 Constitutional: Negative for fever, chills, and weight loss, sb4 13:45 Eyes: Positive for blurry vision, itching, pain, redness, swelling, tearing, 13:45 All other systems are negative, Exam: 13:45 Visual Acuity: Visual acuity is within normal limits. sb4 13:45 Constitutional: This is a well developed, well nourished patient who is awake, alert, and in no acute distress. Head/Face: Normocephalic, atraumatic. ENT: Mucous membranes moist. Skin: Warm, dry with normal turgor. Normal color with no rashes, no lesions, and no evidence of cellulitis. 13:45 Eyes: Periorbital structures: appear normal, Pupils: equal, round, and reactive to light and accomodation, Extraocular movements: intact throughout, Conjunctiva: injected, bilaterally, Vital Signs: 13:18 BP 118 / 71; Pulse 88; Resp 16 S; Temp 97.5(TE); Pulse Ox 99% on R/A; Weight 81.65 kg as6 (R); Height 5 ft. 7 in. (R); Pain 0/10; 13:18 Body Mass Index 28.19 (81.65 kg, 170.18 cm) as6 13:18 Pain Scale: Adult as6 MDM: 13:21 Patient medically screened. sb4 13:45 Differential diagnosis: Acute iritis of both eyes. Allergic conjunctivitis in both sb4 eyes. Data reviewed: vital signs, nurses notes, and as a result, I will discharge patient. Counseling: I had a detailed discussion with the patient and/or guardian regarding the historical points, exam findings, and any diagnostic results supporting the discharge/admit diagnosis, the need for outpatient follow up, an opthalmologist, to return to the emergency department if symptoms worsen or persist or if there are any questions or concerns that arise at home. Administered Medications: No medications were administered Disposition Summary: 08/21/23 13:27 Discharge Ordered Notes: Location: Home sb4 Problem: new sb4 Symptoms: are unchanged sb4 Condition: Stable sb4 Diagnosis - Other viral conjunctivitis sb4 Followup: sb4 - With: Trev Hand MD - When: As needed - Reason: Recheck today's complaints, Re-evaluation by your physician Discharge Instructions: - Discharge Summary Sheet sb4 - Viral Conjunctivitis, Adult sb4 Forms: - Work release form sb4 - Thank You Letter sb4 - Patient Portal Instructions sb4 - Leadership Thank You Letter sb4 Prescriptions: - Zerviate 0.24 % Ophthalmic Dropperette - instill 1 drop OPHTHALMIC route 2 times per day for 7 days in each eye; 1 sb4 Applicator; Refills: 0, Product Selection Permitted Signatures: Robert Silverio, RN RN as6 Cammie Villalta PA-C PA-C sb4
--- NOTE | 2023-08-21 13:27 | ER ---
Nurse's Notes [facility] Name: Nickie Concepcion Age: 42 yrs Sex: Female : 1980 Arrival Date: 08/21/2023 Time: 12:58 Bed DX3 Private MD: Diagnosis: Other viral conjunctivitis Presentation: 08/20 13:18 Chief complaint: Patient states: "last night my eyes were blood shot red and supper as6 swollen". Coronavirus screen: At this time, the client does not indicate any symptoms associated with coronavirus-19. Ebola Screen: No symptoms or risks identified at this time. Initial Sepsis Screen: Does the patient meet any 2 criteria? No. Patient's initial sepsis screen is negative. Does the patient have a suspected source of infection? No. Patient's initial sepsis screen is negative. Risk Assessment: Do you want to hurt yourself or someone else? Patient reports no desire to harm self or others. Onset of symptoms was August 20, 2023. 13:18 Method Of Arrival: Ambulatory as6 13:18 Acuity: VINICIUS 4 as6 Triage Assessment: 13:26 General: Appears in no apparent distress. Behavior is calm, cooperative. Pain: Denies as6 pain. EENT: Eyes swelling noted . Neuro: Level of Consciousness is awake, alert, obeys commands, Oriented to person, place, time, situation. Cardiovascular: Capillary refill < 3 seconds Patient's skin is warm and dry. Respiratory: Respiratory effort is even, unlabored, Respiratory pattern is regular, symmetrical. GI: No deficits noted. No signs and/or symptoms were reported involving the gastrointestinal system. : No deficits noted. No signs and/or symptoms were reported regarding the genitourinary system. Derm: Skin is intact, is healthy with good turgor. Musculoskeletal: Circulation, motion, and sensation intact. Historical: - Allergies: 13:19 No Known Allergies; as6 - PMHx: 13:19 Anemia; as6 - PSHx: 13:19 None; as6 - Immunization history:: Adult Immunizations up to date. - Infectious Disease History:: Denies. - Social history:: Smoking status: Patient denies any tobacco usage or history of. Screenin:22 [facility] ED Fall Risk Assessment (Adult) History of falling in the last 3 months, mb9 including since admission No falls in past 3 months (0 pts) Confusion or Disorientation No (0 pts) Intoxicated or Sedated No (0 pts) Impaired Gait No (0 pts) Mobility Assist Device Used No (0 pt) Altered Elimination No (0 pt) Score/Fall Risk Level 0 - 2 = Low Risk Oriented to surroundings, Maintained a safe environment, Educated pt \\T\\ family on fall prevention, incl call for assistance when getting out of bed. Abuse screen: Denies threats or abuse. Nutritional screening: No deficits noted. Tuberculosis screening: No symptoms or risk factors identified. Vital Signs: 13:18 BP 118 / 71; Pulse 88; Resp 16 S; Temp 97.5(TE); Pulse Ox 99% on R/A; Weight 81.65 kg as6 (R); Height 5 ft. 7 in. (R); Pain 0/10; 13:18 Body Mass Index 28.19 (81.65 kg, 170.18 cm) as6 13:18 Pain Scale: Adult as6 ED Course: 13:00 Patient arrived in ED. im 13:19 Triage completed. as6 13:20 Arm band placed on. as6 13:21 Cammie Villalta PA-C is PHCP. sb4 13:21 Alva Hensley MD is Attending Physician. sb4 13:22 Patient has correct armband on for positive identification. mb9 13:26 Robert Silverio, JULIETA is Primary Nurse. as6 13:26 Trev Hand MD is Referral Physician. sb4 13:27 No provider procedures requiring assistance completed. Patient did not have IV access as6 during this emergency room visit. 13:32 Provided Education on: follow up, rx teaching . as6 Administered Medications: No medications were administered Medication: 13:22 VIS not applicable for this client. mb9 Outcome: 13:27 Discharge ordered by MD. sb4 13:32 Discharged to home ambulatory, as6 13:32 Condition: stable 13:32 Discharge instructions given to patient, Instructed on discharge instructions, follow up and referral plans. medication usage, Demonstrated understanding of instructions, follow-up care, medications, Prescriptions given X 1, 13:33 Patient left the ED. as6 Signatures: Robert Silverio RN RN as6 Cammie Villalta PA-C PA-C sb4 Annette Lyn RN RN mb9 Callie Church
[2023-08-21 19:04] VITALS: BP 118/71; TEMP 97.5; O2SAT 99
== END 2023-08-21 13:33 | disposition home or self-care (01) ==
LOC: ER 12:58
DX: H10.89 Other conjunctivitis (principal)
CPT/HCPCS: 99283

== ENCOUNTER 2024-03-14 08:23 | Emergency (ER) | payer BC ==
--- OUTSIDE RECORDS SUMMARY | 2024-03-14 08:25 | XMS REPORT | Continuity of Care Document ---
Author Name Unknown Address [address] [place] [address] [employer]connect Address [address] [place] [address] Care Team Providers Care Bank Compliance Officer Name Role Phone [email or web address] Attending Clinician Unavaila ble [email or web address] Admitting Clinician Unavaila ble Encounters Start Date/Time End Date/Time Encounter Type Admission Type Attending Clinicians Care Facility Care Department Encounter ID Source 2023-03-05 00:00:00 2023-03-05 00:00:00 Outpatient [email or web address] PRIV PRIV [id number] [facility]
[2024-03-14] MEDS ORDERED: dexAMETHasone 4 MG TAB ONE (08:47)
[2024-03-14] MEDS ORDERED: AMOX/K CLAV 875 MG TAB ONE (08:47)
[2024-03-14] MEDS ORDERED: IBUPROFEN 200 MG TAB PO ONE (08:47)
[2024-03-14] MEDS ORDERED: MAGNES/ALUMIN/SIMET 30ML UCUP ONE (08:47)
[2024-03-14] MEDS ORDERED: LIDOCAINE VISCOUS 2% 10ML ORAL SOLN ONE (08:48)
--- NOTE | 2024-03-14 08:50 | EDPHYS ---
Physician Documentation [facility] Name: Nickie Concepcion Age: 43 yrs Sex: Female : 1980 Arrival Date: 03/14/2024 Time: 08:23 Bed 6 Private MD: BAKARI Physician Albert Weeks HPI: 03/14 08:44 This 43 yrs old Black Female presents to ER via Ambulatory with complaints of Sore faina Throat. 08:44 The patient presents with sore throat. The patient describes throat pain as burning, faina constant. Onset: The symptoms/episode began/occurred 1 day(s) ago. Severity of symptoms: At their worst the symptoms were mild, in the emergency department the symptoms are unchanged. Modifying factors: The symptoms are alleviated by fluids, the symptoms are aggravated by swallowing. Associated signs and symptoms: The patient has no apparent associated signs or symptoms. The patient has experienced similar episodes in the past, a few times. 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 - Infectious Disease History:: Denies. - Social history:: Smoking status: Patient denies any tobacco usage or history of. - Family history:: not pertinent. ROS: 08:44 Constitutional: Negative for fever, chills, and weight loss, Eyes: Negative for injury, faina pain, redness, and discharge, Neck: Negative for injury, pain, and swelling, Cardiovascular: Negative for chest pain, palpitations, and edema, Respiratory: Negative for shortness of breath, cough, wheezing, and pleuritic chest pain, Abdomen/GI: Negative for abdominal pain, nausea, vomiting, diarrhea, and constipation, Back: Negative for injury and pain, : Negative for injury, bleeding, discharge, and swelling, MS/Extremity: Negative for injury and deformity, Skin: Negative for injury, rash, and discoloration, Neuro: Negative for headache, weakness, numbness, tingling, and seizure, Psych: Negative for depression, anxiety, suicide ideation, homicidal ideation, and hallucinations, Allergy/Immunology: Negative for hives, rash, and allergies, Endocrine: Negative for neck swelling, polydipsia, polyuria, polyphagia, and marked weight changes, Hematologic/Lymphatic: Negative for swollen nodes, abnormal bleeding, and unusual bruising, 08:44 ENT: Positive for sore throat, Exam: 08:44 Constitutional: This is a well developed, well nourished patient who is awake, alert, faina and in no acute distress. Head/Face: Normocephalic, atraumatic. Eyes: Pupils equal round and reactive to light, extra-ocular motions intact. Lids and lashes normal. Conjunctiva and sclera are non-icteric and not injected. Cornea within normal limits. Periorbital areas with no swelling, redness, or edema. Neck: Trachea midline, no thyromegaly or masses palpated, and no cervical lymphadenopathy. Supple, full range of motion without nuchal rigidity, or vertebral point tenderness. No Meningismus. Chest/axilla: Normal chest wall appearance and motion. Nontender with no deformity. No lesions are appreciated. Cardiovascular: Regular rate and rhythm with a normal S1 and S2. No gallops, murmurs, or rubs. Normal PMI, no JVD. No pulse deficits. Respiratory: Lungs have equal breath sounds bilaterally, clear to auscultation and percussion. No rales, rhonchi or wheezes noted. No increased work of breathing, no retractions or nasal flaring. Abdomen/GI: Soft, non-tender, with normal bowel sounds. No distension or tympany. No guarding or rebound. No evidence of tenderness throughout. Back: No spinal tenderness. No costovertebral tenderness. Full range of motion. Skin: Warm, dry with normal turgor. Normal color with no rashes, no lesions, and no evidence of cellulitis. MS/ Extremity: Pulses equal, no cyanosis. Neurovascular intact. Full, normal range of motion. Neuro: Awake and alert, GCS 15, oriented to person, place, time, and situation. Cranial nerves II-XII grossly intact. Motor strength 5/5 in all extremities. Sensory grossly intact. Cerebellar exam normal. Normal gait. Psych: Awake, alert, with orientation to person, place and time. Behavior, mood, and affect are within normal limits. 08:44 ENT: Posterior pharynx: Airway: normal, no evidence of obstruction, swelling, that is mild, erythema, that is mild, exudate, is not appreciated, peritonsillar mass, is not appreciated, Vital Signs: 08:33 BP 110 / 55; Pulse 80; Resp 18 S; Temp 98.5(O); Pulse Ox 98% on R/A; Weight 81.65 kg aa5 (R); Height 5 ft. 7 in. (R); 09:02 BP 107 / 64; Pulse 76; Resp 16; Pulse Ox 100% ; ko1 08:33 Body Mass Index 28.19 (81.65 kg, 170.18 cm) aa5 MDM: 08:27 Medical Screening Exam initiated faina 08:47 Differential diagnosis: gingivostomatitis, group A strep tonsillitis, laryngitis, faina mononucleosis, peritonsillar abscess chlamydia pharyngitis, neisseria gonorrheoeae pharangitis, pharyngitis, tonsillitis, upper respiratory infection, uvulitis. Data reviewed: vital signs, nurses notes. Consideration of Admission/Observation Escalation of care including admission/observation considered. I considered the following discharge prescriptions or medication management in the emergency department Medications were administered in the Emergency Department. See MAR. Test considered but Not performed: Labs: no cbc, no comp met. Care significantly affected by the following chronic conditions: anemia. Counseling: I had a detailed discussion with the patient and/or guardian regarding the historical points, exam findings, and any diagnostic results supporting the discharge/admit diagnosis, the need for outpatient follow up, for definitive care, a family practitioner. Administered Medications: 08:50 Drug: GI Cocktail without - (Maalox PO 30 ml, Lidocaine Mucous Membrane 2 % 15 ko1 ml) PO once Route: PO; 09:00 Follow up: Response: No adverse reaction; Medication administered at discharge. ko1 08:50 Drug: Amoxicillin-Clavulanate PO 875 mg PO once Route: PO; ko1 09:00 Follow up: Response: No adverse reaction; Medication administered at discharge. ko1 08:50 Drug: Ibuprofen PO 600 mg PO once Route: PO; ko1 09:00 Follow up: Response: No adverse reaction; Medication administered at discharge. ko1 08:50 Drug: Dexamethasone PO 10 mg PO once Route: PO; ko1 09:00 Follow up: Response: No adverse reaction; Medication administered at discharge. ko1 Disposition Summary: 03/14/24 08:49 Discharge Ordered Notes: Location: Home [facility] Problem: new [facility] Symptoms: have improved [facility] Condition: Stable [facility] Diagnosis - Acute pharyngitis, unspecified faina Followup: faina - With: Private Physician - When: 2 - 3 days - Reason: Recheck today's complaints, Continuance of care, Re-evaluation by your physician Discharge Instructions: - Discharge Summary Sheet faina - Pharyngitis faina - Sore Throat faina - Upper Respiratory Infection, Adult faina - Upper Respiratory Infection, Adult, [id number] faina - Pharyngitis, [id number] [facility] Forms: - Medication Reconciliation Form [facility] - Antibiotic Education [facility] - Prescription Opioid Use [facility] - Patient Portal Instructions [facility] - Leadership Thank You Letter [facility] Prescriptions: - Augmentin 875-125 mg Oral tablet - take 1 tablet ORAL route every 12 hours for 7 days; 14 tablet; Refills: 0, [facility] Product Selection Permitted - Jaylyn-D 12 Hour 60-120 mg Oral Tablet Sustained Release 12 hr - take 1 tablet ORAL route every 12 hours As needed; 20 tablet; Refills: 0, [facility] Product Selection Permitted - Tessalon Perles 100 mg Oral capsule - take 2 capsule ORAL route every 8 hours As needed; 30 capsule; Refills: 0, [facility] Product Selection Permitted Signatures: Albert Weeks MD MD cha Calderon, Audri, RN RN aa5 Lisa Morrow, RN RN ko1
--- NOTE | 2024-03-14 08:50 | ER ---
Nurse's Notes [facility] Name: Nickie Concepcion Age: 43 yrs Sex: Female : 1980 Arrival Date: 03/14/2024 Time: 08:23 Bed 6 Private MD: Diagnosis: Acute pharyngitis, unspecified Presentation: 03/14 08:33 Chief complaint: Patient states: "I just started with a little bit of sore throat this aa5 morning and I feel like my glands are swollen (lymph nodes)". Coronavirus screen: At this time, the client does not indicate any symptoms associated with coronavirus-19. Ebola Screen: Patient denies travel to an Ebola-affected area in the 21 days before illness onset. Initial Sepsis Screen: Does the patient meet any 2 criteria? No. Patient's initial sepsis screen is negative. Does the patient have a suspected source of infection? No. Patient's initial sepsis screen is negative. Risk Assessment: Do you want to hurt yourself or someone else? Patient reports no desire to harm self or others. Onset of symptoms was March 14, 2024. 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 - Infectious Disease History:: Denies. - Social history:: Smoking status: Patient denies any tobacco usage or history of. - Family history:: not pertinent. Screenin:35 [facility] ED Fall Risk Assessment (Adult) History of falling in the last 3 months, mb9 including since admission No falls in past 3 months (0 pts) Confusion or Disorientation No (0 pts) Intoxicated or Sedated No (0 pts) Impaired Gait No (0 pts) Mobility Assist Device Used No (0 pt) Altered Elimination No (0 pt) Score/Fall Risk Level 0 - 2 = Low Risk Oriented to surroundings, Maintained a safe environment, Educated pt \\T\\ family on fall prevention, incl call for assistance when getting out of bed. Abuse screen: Denies threats or abuse. Nutritional screening: No deficits noted. Tuberculosis screening: No symptoms or risk factors identified. Assessment: 08:36 General: Appears in no apparent distress. Behavior is calm, cooperative. Pain: mb9 Complains of pain in neck Quality of pain is described as throbbing. Neuro: Level of Consciousness is awake, alert, obeys commands, Oriented to person, place, time, situation, Appropriate for age. Cardiovascular: Patient's skin is warm and dry. Respiratory: Airway is patent Respiratory effort is even, unlabored, Respiratory pattern is regular, symmetrical. GI: No signs and/or symptoms were reported involving the gastrointestinal system. : No signs and/or symptoms were reported regarding the genitourinary system. EENT: Throat is clear. Derm: Skin is pink, warm \\T\\ dry. Musculoskeletal: Range of motion: intact in all extremities. Vital Signs: 08:33 BP 110 / 55; Pulse 80; Resp 18 S; Temp 98.5(O); Pulse Ox 98% on R/A; Weight 81.65 kg aa5 (R); Height 5 ft. 7 in. (R); 09:02 BP 107 / 64; Pulse 76; Resp 16; Pulse Ox 100% ; ko1 08:33 Body Mass Index 28.19 (81.65 kg, 170.18 cm) aa5 ED Course: 08:25 Patient arrived in ED. mg5 08:27 Annette Allen RN is Primary Nurse. mb9 08:27 Albert Weeks MD is Attending Physician. faina 08:33 Arm band placed on. aa5 08:34 Triage completed. aa5 08:35 Bed in low position. Call light in reach. Side rails up X 1. Provided Education on: mb9 press call light if needing anything. Client placed on continuous cardiac and pulse oximetry monitoring. NIBP monitoring applied. 08:37 No provider procedures requiring assistance completed. mb9 09:02 Patient did not have IV access during this emergency room visit. ko1 Administered Medications: 08:50 Drug: GI Cocktail without - (Maalox PO 30 ml, Lidocaine Mucous Membrane 2 % 15 ko1 ml) PO once Route: PO; 09:00 Follow up: Response: No adverse reaction; Medication administered at discharge. ko1 08:50 Drug: Amoxicillin-Clavulanate PO 875 mg PO once Route: PO; ko1 09:00 Follow up: Response: No adverse reaction; Medication administered at discharge. ko1 08:50 Drug: Ibuprofen PO 600 mg PO once Route: PO; ko1 09:00 Follow up: Response: No adverse reaction; Medication administered at discharge. ko1 08:50 Drug: Dexamethasone PO 10 mg PO once Route: PO; ko1 09:00 Follow up: Response: No adverse reaction; Medication administered at discharge. ko1 Medication: 08:36 VIS not applicable for this client. mb9 Outcome: 08:49 Discharge ordered by . faina 09:02 Discharged to home ambulatory, ko1 09:02 Condition: stable 09:02 Discharge instructions given to patient, Instructed on discharge instructions, follow up and referral plans. medication usage, Demonstrated understanding of instructions, follow-up care, medications, Prescriptions given X 3, 09:03 Patient left the ED. ko1 Signatures: Albert Weeks MD MD cha Calderon, Audri RN RN aa5 Lisa Morrow RN RN ko1 Annette Allen RN RN mb9 Lisa Leblanc mg5
[2024-03-14 09:14] VITALS: TEMP 98.5
[2024-03-14 09:18] VITALS: BP 107/64; O2SAT 100
== END 2024-03-14 09:03 | disposition home or self-care (01) ==
LOC: ER 08:23
DX: J02.9 Acute pharyngitis, unspecified (principal)
CPT/HCPCS: 99283; J8540